=== PATIENT | male | born 1930 | race Caucasian/White ===

== ENCOUNTER 2017-06-09 16:10 | Emergency (ER) | payer MEDICARE, MEDICAID ==
[2017-06-09 16:11] VITALS: BMI 24.7
[2017-06-09] MEDS ORDERED: Absorbable Gelatin Sponge Size 12-7 MM STA (17:01)
[2017-06-09] MEDS ORDERED: Absorbable Gelatin Sponge Size 12-7 ONE (17:07)
--- NOTE | 2017-06-09 17:37 | C.PDOC ---
History Of Present Illness 87 year old male presents to ED for evaluation of bleeding to pacemaker site since this morning. Pts son notes he had pacemaker placed by Dr. Jarrod Laura at [facility] 2 weeks ago. Pt states that his steri strips fell off in the shower. Pt was seen by Dr. Laura 2 days ago and was placed on antibiotics, no bleeding at that time. Note, pt is currently taking Plavix. Denies chest pain, SOB, bleeding or ecchymosis to any other area. Time Seen by Provider: 06/09/17 16:52 Chief Complaint (Nursing): Abnormal Skin Integrity History Per: Patient History/Exam Limitations: no limitations Onset/Duration Of Symptoms: Days Current Symptoms Are (Timing): Still Present Location Of Injury: Anterior: Chest Recent travel outside of the [place]: No Additional History Per: Patient Past Medical History Reviewed: Historical Data, Nursing Documentation, Vital Signs Vital Signs: Last Vital Signs Temp 98 F 06/09/17 19:18 Pulse 79 06/09/17 19:18 Resp 20 06/09/17 19:18 BP 139/75 06/09/17 19:18 Pulse Ox 99 06/09/17 19:18 - Medical History PMH: HTN Surgical History: Pacemaker - [facility] Procedures CORONAR ARTERIOGR-2 CATH (01/21/02) LEFT HEART CARDIAC CATH (01/21/02) LT HEART ANGIOCARDIOGRAM (01/21/02) REPL CARDIODEFIB GENRATR (10/21/14) REVISION OF LEAD (10/21/14) Family History: States: Unknown Family Hx - Social History Hx Alcohol Use: Yes (RARE) Hx Substance Use: No - Immunization History Hx Tetanus Toxoid Vaccination: Yes Hx Influenza Vaccination: Yes Hx Pneumococcal Vaccination: Yes Review Of Systems Except As Marked, All Systems Reviewed And Found Negative. Constitutional: Negative for: Fever, Chills Cardiovascular: Negative for: Chest Pain Respiratory: Negative for: Cough, Shortness of Breath Skin: Positive for: Other (bleeding from pacemaker site) Physical Exam - Physical Exam Appears: Non-toxic, No Acute Distress Skin: Warm, Dry, Other (0.25cm area of persistent oozing from right side of surgical incision site over the upper chest region, no purulent drainage) Head: Atraumatic, Normacephalic Eye(s): bilateral: Normal Inspection, EOMI Nose: Normal Oral Mucosa: Moist Neck: Normal ROM, Supple Chest: Symmetrical Cardiovascular: Rhythm Regular Respiratory: Normal Breath Sounds, No Rales, No Rhonchi, No Wheezing Extremity: Normal ROM Neurological/Psych: Oriented x3, Normal Speech ED Course And Treatment - Laboratory Results Result Diagrams: 06/09/17 17:44 06/09/17 17:44 O2 Sat by Pulse Oximetry: 95 (RA) Pulse Ox Interpretation: Normal Progress Note: Blood work ordered and reviewed. Spoke with Dr. Laura who instructed to apply pressure dressing and re-evaluate. On re-eval, bleeding has stopped. No bleeding through the gel foam. The patient was observed in the ER, no repeat episode of bleeding was noted. Patient is being discharged home, with instructions to follow up with PMD in 1-2 days further evaluation. Return to ED if symptoms persist or worsen. Case discussed with Dr Norman, agreed upon plan and discharge. Disposition - Disposition Referrals: Jarrod Najera MD [Medical Doctor] - Disposition: HOME/ ROUTINE Disposition Time: 19:00 Condition: STABLE Additional Instructions: Keep the pressure dressing on . Do not get it wet. Follow up with Dr Laura tomorrow. Return to ER if symptoms persist or worsen. 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 - Scribe Statement The provider has reviewed the documentation as recorded by the Scribe Susan Pennington All medical record entries made by the Scribe were at my direction and personally dictated by me. I have reviewed the chart and agree that the record accurately reflects my personal performance of the history, physical exam, medical decision making, and the department course for this patient. I have also personally directed, reviewed, and agree with the discharge instructions and disposition.
[2017-06-09 17:57] LABS: BASO # 0.1 K/uL (0.0-0.2); BASO % 0.9 % (0.0-2.0); EOS # 0.1 K/uL (0.0-0.7); EOS % 1.8 % (0.0-4.0); HEMOGLOBIN 12.8 g/dL (12.0-18.0); LYMPH # 1.2 K/uL (1.0-4.3); LYMPH % 17.8 % (20.0-40.0); MEAN CORPUSCULAR HEMOGLOBIN 25.6 pg (27.0-31.0); MEAN CORPUSCULAR HGB CONC 33.1 g/dL (33.0-37.0); MEAN PLATELET VOLUME 6.7 fL (7.2-11.7); MONO # 0.4 K/uL (0.0-0.8); MONO % 6.8 % (0.0-10.0); NEUT # 4.8 K/uL (1.8-7.0); NEUT % 72.7 % (50.0-75.0); NRBC % 0.1 % (0.0-2.0); RBC 4.99 Mil/uL (4.40-5.90); RED CELL DISTRIBUTION WIDTH 17.5 % (11.5-14.5); WHITE BLOOD COUNT 6.6 K/uL (4.8-10.8)
[2017-06-09 17:59] LABS: MEAN CELL VOLUME 77.3 fL (80.0-94.0)
[2017-06-09 18:02] LABS: PROTHROMBIN TIME 10.8 SECONDS (9.7-12.2)
[2017-06-09 18:08] LABS: ALB/GLOB RATIO 1.1 (1.0-2.1); ALBUMIN 3.6 g/dL (3.5-5.0); ALT/SGPT 14 U/L (21-72); AST/SGOT 25 U/L (17-59); BLOOD UREA NITROGEN 22 mg/dL (9-20); CALCIUM 9.7 mg/dl (8.6-10.4); GFR AFRICAN-AMERICAN > 60; GFR NON-AFRICAN AMERICAN > 60
[2017-06-09 19:21] VITALS: BP 139/75; PULSE 79; RESP 20; TEMP 98
[2017-06-11 02:05] VITALS: O2SAT 95
== END 2017-06-09 19:21 | disposition home or self-care (01) ==
LOC: C.ER 16:10
DX: Z48.89 Encounter for other specified surgical aftercare (principal); I10 Essential (primary) hypertension; Z95.0 Presence of cardiac pacemaker